=== PATIENT | male | born 1945 | race Caucasian/White ===

== ENCOUNTER 2020-07-16 20:35 | Inpatient (IN) | payer MEDICARE, OTHER ==
[~2020-07-16] VITALS: Ht 175.3 cm; Wt 59.4 kg
[~2020-07-16 20:35] MED LIST: AMLO5TAB4 PO; ASPI-1406 PO; LORA2TAB95 PO; MULT-1146 PO; THIA100T13 PO
[2020-07-16] MEDS ORDERED: AZITHROMYCIN 500 MG in DEXT 5% WATER 250 ML IV ONE (21:30)
[2020-07-16] MEDS ORDERED: CEFTRIAXONE 1 G PREMIX 50 ML IV ONE (21:30)
[2020-07-16 22:49] LABS: BG BASE EXCESS -0.7 mmol/L (-2.0-2.0); BG CARBOXYHEMOGLOBIN 1.2 % (0.5-1.5); BG DEOXYHEMOGLOBIN 9.4 % (0.0-5.0); BG FRACTION INSPIRED OXYGEN 70; BG HCO3 ACT 23.4 mmol/L (22.0-26.0); BG METHEMOGLOBIN 0.1 % (0.0-1.5); BG OXYGEN SATURATION 90.5 % (92.0-98.5); BG OXYHEMOGLOBIN 89.3 % (94.0-97.0); BG PCO2 37.2 mmHg (35.0-45.0); BG PH 7.417 (7.350-7.450); BG PO2 59.3 mmHg (75.0-100.0); BG SAMPLE SITE RIGHT RADIAL; BG TOTAL HEMOGLOBIN 14.4 g/dL (12.0-18.0); BG VENT MODE MASK - BIPAP
[2020-07-16 23:02] LABS: BASOPHILS % 0.9 % (0.0-2.0); EOSINOPHILS % 0.2 % (0.0-5.0); HEMATOCRIT. 39.6 % (42.0-52.0); HEMOGLOBIN. 13.6 g/dL (14.0-18.0); LYMPHOCYTES % 18.3 % (20.0-50.0); MEAN CORPUSCULAR HEMOGLOBIN 31.1 pg (28.0-32.0); MEAN CORPUSCULAR VOLUME 90.9 fL (80.0-94.0); MONOCYTES % 9.1 % (2.0-8.0); NEUTROPHILS % 71.5 % (40.0-76.0); PLATELET 326 x1000/uL (130-400); RED BLOOD CELL COUNT 4.36 mill/uL (4.7-6.1); RED CELL DISTRIBUTION WIDTH 14.7 % (11.6-14.6)
[2020-07-16 23:09] LABS: CHLORIDE 107 mEq/L (98-107)
[2020-07-16 23:11] LABS: INR 1.2; PROTHROMBIN TIME 12.4 sec (9.6-11.0)
[2020-07-17] MEDS ORDERED: DEXAMETHASONE 10 MG/ML VIAL IV ONE (01:15)
[2020-07-17] MEDS ORDERED: KEPP500 MT (08:45)
[2020-07-17] MEDS ORDERED: ALPR1TAB2 MT (08:45)
[2020-07-17] MEDS: AMLODIPINE 10MG TABLET PO SCH (09:00)
[2020-07-17] MEDS ORDERED: ALBUTEROL 6.7GM HFA INHALER ORI PRN (09:00)
[2020-07-17] MEDS ORDERED: ONDANSETRON HCL 4MG/2ML INJ IV PRN (09:00)
[2020-07-17] MEDS: ENOXAPARIN 40MG/0.4ML SYR SUBCUT SCH (15:00)
[2020-07-17] MEDS ORDERED: ALPRAZOLAM 0.25 MG TABLET PO PRN (16:45)
[2020-07-17] MEDS: ALPRAZOLAM 0.25 MG TABLET PO SCH (17:00)
[2020-07-17 17:04] LABS: CLARITY URINE CLEAR (CLEAR); COLOR URINE DARK YELLOW (YELLOW); KETONES URINE TRACE (NEGATIVE); LEUKOCYTE ESTERASE URINE NEGATIVE (NEGATIVE); NITRITE URINE NEGATIVE (NEGATIVE); OCCULT BLOOD URINE TRACE (NEGATIVE); PH URINE 5.5 (4.5-8.0); PROTEIN URINE 2+ (NEGATIVE); SPECIFIC GRAVITY URINE 1.026 (1.005-1.030)
[2020-07-17] MEDS ORDERED: HYDRALAZINE HCL 100MG TABLET PO SCH (18:30)
[2020-07-17] MEDS: DEXAMETHASONE 10 MG/ML VIAL IV SCH (19:04)
[2020-07-17] MEDS: LEVETIRACETAM 500MG TABLET PO SCH ×2 (21:00→22:30)
[2020-07-18] MEDS: CEFTRIAXONE 1,000 MG in DEXTROSE 5% WATER 50 ML IV SCH (02:02)
[2020-07-18 08:38] LABS: BG BASE EXCESS -2.6 mmol/L (-2.0-2.0); BG CARBOXYHEMOGLOBIN 0.4 % (0.5-1.5); BG DEOXYHEMOGLOBIN 5.1 % (0.0-5.0); BG FRACTION INSPIRED OXYGEN 100; BG HCO3 ACT 20.9 mmol/L (22.0-26.0); BG METHEMOGLOBIN 0.2 % (0.0-1.5); BG OXYGEN SATURATION 94.9 % (92.0-98.5); BG OXYHEMOGLOBIN 94.3 % (94.0-97.0); BG PCO2 32.7 mmHg (35.0-45.0); BG PH 7.424 (7.350-7.450); BG PO2 73.6 mmHg (75.0-100.0); BG SAMPLE SITE RIGHT BRACHIAL; BG TOTAL RESPIRATORY RATE 16 b/min; BG VENT MODE MASK - BIPAP
[2020-07-18 09:14] LABS: BASOPHILS % 0.4 % (0.0-2.0); HEMOGLOBIN. 14.5 g/dL (14.0-18.0); LYMPHOCYTES % 7.8 % (20.0-50.0); MEAN CORPUSCULAR HEMOGLOBIN 30.9 pg (28.0-32.0); MEAN CORPUSCULAR VOLUME 91.7 fL (80.0-94.0); MEAN PLATELET VOLUME 8.1 fl (7.4-10.4); MONOCYTES % 5.8 % (2.0-8.0); PLATELET 418 x1000/uL (130-400); RED BLOOD CELL COUNT 4.68 mill/uL (4.7-6.1); RED CELL DISTRIBUTION WIDTH 14.4 % (11.6-14.6)
[2020-07-18 09:21] LABS: CHLORIDE 113 mEq/L (98-107)
[2020-07-18] MEDS: DEXAMETHASONE 10 MG/ML VIAL IV SCH (09:40)
[2020-07-18] MEDS: HYDRALAZINE HCL 100MG TABLET PO SCH ×2 (09:40→16:43)
[2020-07-18] MEDS: LEVETIRACETAM 500MG TABLET PO SCH ×2 (09:41→21:00)
[2020-07-18] MEDS: AMLODIPINE 10MG TABLET PO SCH (09:41)
[2020-07-18] MEDS: ALPRAZOLAM 0.25 MG TABLET PO SCH ×2 (09:41→16:43)
[2020-07-18] MEDS: AZITHROMYCIN 250 MG TABLET PO SCH (09:42)
[2020-07-18] MEDS: ENOXAPARIN 40MG/0.4ML SYR SUBCUT SCH (09:42)
[2020-07-18] MEDS: SODIUM CHLORIDE 0.45% 1,000 ML IV SCH (10:24)
[2020-07-19] VITALS (7 sets, daily range): BP systolic 106–145; BP diastolic 60–82
[2020-07-19] MEDS: HYDRALAZINE HCL 100MG TABLET PO SCH ×3 (01:00→17:00)
[2020-07-19] MEDS: SODIUM CHLORIDE 0.45% 1,000 ML IV SCH ×2 (02:19→21:38)
[2020-07-19] MEDS: CEFTRIAXONE 1,000 MG in DEXTROSE 5% WATER 50 ML IV SCH (02:19)
[2020-07-19 06:45] LABS: BG BASE EXCESS -3.4 mmol/L (-2.0-2.0); BG CARBOXYHEMOGLOBIN 0.3 % (0.5-1.5); BG DEOXYHEMOGLOBIN 0.4 % (0.0-5.0); BG FRACTION INSPIRED OXYGEN 100; BG HCO3 ACT 19.5 mmol/L (22.0-26.0); BG METHEMOGLOBIN 0.3 % (0.0-1.5); BG OXYGEN SATURATION 99.6 % (92.0-98.5); BG PCO2 29.4 mmHg (35.0-45.0); BG PH 7.439 (7.350-7.450); BG PO2 227.7 mmHg (75.0-100.0); BG SAMPLE SITE RIGHT RADIAL; BG TOTAL HEMOGLOBIN 14.1 g/dL (12.0-18.0); BG TOTAL RESPIRATORY RATE 40 b/min; BG VENT MODE MASK - BIPAP
[2020-07-19] MEDS: AZITHROMYCIN 250 MG TABLET PO SCH (10:02)
[2020-07-19] MEDS: AMLODIPINE 10MG TABLET PO SCH (10:02)
[2020-07-19] MEDS: ALPRAZOLAM 0.25 MG TABLET PO SCH ×2 (10:02→17:45)
[2020-07-19] MEDS: LEVETIRACETAM 500MG TABLET PO SCH ×2 (10:02→20:56)
[2020-07-19] MEDS: DEXAMETHASONE 10 MG/ML VIAL IV SCH (10:03)
[2020-07-19] MEDS: ENOXAPARIN 40MG/0.4ML SYR SUBCUT SCH (11:16)
[2020-07-19] MEDS: BLOOD SUGAR DIAGNOSTIC STRIP TEST SCH ×2 (17:15→21:00)
[2020-07-19 17:34] LABS: HEMATOCRIT. 40.1 % (42.0-52.0); HEMOGLOBIN. 13.1 g/dL (14.0-18.0); MEAN CORPUSCULAR HEMOGLOBIN 29.9 pg (28.0-32.0); MEAN CORPUSCULAR VOLUME 91.8 fL (80.0-94.0); MEAN PLATELET VOLUME 8.3 fl (7.4-10.4); PLATELET 426 x1000/uL (130-400); RED BLOOD CELL COUNT 4.37 mill/uL (4.7-6.1); RED CELL DISTRIBUTION WIDTH 14.9 % (11.6-14.6)
[2020-07-19] MEDS: INSULIN LISPRO 100 UNITS/ML SUBCUT SCH ×2 (17:47→21:00)
[2020-07-19 17:49] LABS: CHLORIDE 117 mEq/L (98-107)
[2020-07-19 19:06] LABS: PLATELET ESTIMATE INCREASED
[2020-07-19] MEDS ORDERED: INSULIN GLARGINE UD 100 UNITS/ML SYR SUBCUT SCH (22:00)
[2020-07-20 00:05] VITALS: BP 133/71
[2020-07-20] MEDS: HYDRALAZINE HCL 100MG TABLET PO SCH ×3 (02:00→17:00)
[2020-07-20] MEDS: CEFTRIAXONE 1,000 MG in DEXTROSE 5% WATER 50 ML IV SCH (02:00)
[2020-07-20 04:00] VITALS: BP 119/56
[2020-07-20] MEDS: BLOOD SUGAR DIAGNOSTIC STRIP TEST SCH ×4 (05:47→20:27)
[2020-07-20] MEDS: INSULIN LISPRO 100 UNITS/ML SUBCUT SCH ×4 (05:47→21:07)
[2020-07-20 07:25] LABS: BASOPHILS % 0.2 % (0.0-2.0); HEMATOCRIT. 43.7 % (42.0-52.0); HEMOGLOBIN. 14.2 g/dL (14.0-18.0); LYMPHOCYTES % 7.5 % (20.0-50.0); MEAN CORPUSCULAR HEMOGLOBIN 30.2 pg (28.0-32.0); MEAN CORPUSCULAR VOLUME 92.7 fL (80.0-94.0); MEAN PLATELET VOLUME 8.3 fl (7.4-10.4); MONOCYTES % 6.5 % (2.0-8.0); NEUTROPHILS % 85.8 % (40.0-76.0); PLATELET 439 x1000/uL (130-400); RED BLOOD CELL COUNT 4.71 mill/uL (4.7-6.1); RED CELL DISTRIBUTION WIDTH 14.7 % (11.6-14.6)
[2020-07-20 07:34] LABS: CHLORIDE 118 mEq/L (98-107)
[2020-07-20 08:00] VITALS: BP 145/82
[2020-07-20] MEDS: AMLODIPINE 10MG TABLET PO SCH (09:00)
[2020-07-20] MEDS: LEVETIRACETAM 500MG TABLET PO SCH ×2 (09:00→20:11)
[2020-07-20] MEDS: ALPRAZOLAM 0.25 MG TABLET PO SCH ×2 (09:00→17:00)
[2020-07-20] MEDS: AZITHROMYCIN 250 MG TABLET PO SCH (09:00)
[2020-07-20] MEDS: DEXAMETHASONE 10 MG/ML VIAL IV SCH (09:24)
[2020-07-20] MEDS: ENOXAPARIN 40MG/0.4ML SYR SUBCUT SCH (09:28)
[2020-07-20 12:00] VITALS: BP 155/90
[2020-07-20 16:00] VITALS: BP 140/80
[2020-07-20 20:00] VITALS: BP 154/76
[2020-07-20] MEDS: SODIUM CHLORIDE 0.45% 1,000 ML IV SCH (21:07)
[2020-07-20] MEDS: LEVETIRACETAM 500MG PREMIX 100 ML IV SCH (22:22)
[2020-07-21 00:43] VITALS: BP 144/80
[2020-07-21] MEDS: HYDRALAZINE HCL 100MG TABLET PO SCH ×3 (01:00→17:00)
[2020-07-21] MEDS: BLOOD SUGAR DIAGNOSTIC STRIP TEST SCH ×4 (05:48→21:55)
[2020-07-21] MEDS: INSULIN LISPRO 100 UNITS/ML SUBCUT SCH ×4 (05:49→21:58)
[2020-07-21 07:43] LABS: HEMATOCRIT. 42.3 % (42.0-52.0); HEMOGLOBIN. 13.9 g/dL (14.0-18.0); MEAN CORPUSCULAR HEMOGLOBIN 30.4 pg (28.0-32.0); MEAN CORPUSCULAR VOLUME 92.5 fL (80.0-94.0); MEAN PLATELET VOLUME 8.4 fl (7.4-10.4); PLATELET 428 x1000/uL (130-400); RED BLOOD CELL COUNT 4.57 mill/uL (4.7-6.1); RED CELL DISTRIBUTION WIDTH 14.6 % (11.6-14.6)
[2020-07-21 08:00] VITALS: BP 116/70
[2020-07-21 08:53] LABS: CHLORIDE 116 mEq/L (98-107)
[2020-07-21] MEDS: AZITHROMYCIN 250 MG TABLET PO SCH (09:00)
[2020-07-21] MEDS: AMLODIPINE 10MG TABLET PO SCH (09:00)
[2020-07-21] MEDS: ALPRAZOLAM 0.25 MG TABLET PO SCH ×2 (09:00→17:00)
[2020-07-21] MEDS: CEFTRIAXONE 1,000 MG in DEXTROSE 5% WATER 50 ML IV SCH (09:59)
[2020-07-21] MEDS: LEVETIRACETAM 500MG PREMIX 100 ML IV SCH ×2 (10:00→20:38)
[2020-07-21 11:47] LABS: BG BASE EXCESS 0.5 mmol/L (-2.0-2.0); BG CARBOXYHEMOGLOBIN 0.6 % (0.5-1.5); BG DEOXYHEMOGLOBIN 3.4 % (0.0-5.0); BG FRACTION INSPIRED OXYGEN 60; BG HCO3 ACT 24.7 mmol/L (22.0-26.0); BG METHEMOGLOBIN 0.2 % (0.0-1.5); BG OXYGEN SATURATION 96.6 % (92.0-98.5); BG OXYHEMOGLOBIN 95.8 % (94.0-97.0); BG PCO2 38.3 mmHg (35.0-45.0); BG PH 7.427 (7.350-7.450); BG PO2 84.3 mmHg (75.0-100.0); BG SAMPLE SITE RIGHT BRACHIAL; BG TOTAL HEMOGLOBIN 14.5 g/dL (12.0-18.0); BG TOTAL RESPIRATORY RATE 22 b/min; BG VENT MODE MASK - BIPAP
[2020-07-21 12:00] VITALS: BP 127/93
[2020-07-21] MEDS: DEXAMETHASONE 10 MG/ML VIAL IV SCH (12:04)
[2020-07-21] MEDS: ENOXAPARIN 40MG/0.4ML SYR SUBCUT SCH (12:04)
[2020-07-21] MEDS ORDERED: ACETAMINOPHEN 650MG SUPP PR PRN (15:30)
[2020-07-21 16:00] VITALS: BP 126/96
[2020-07-21] MEDS: SODIUM CHLORIDE 0.45% 1,000 ML IV SCH (17:35)
[2020-07-21 20:00] VITALS: BP 132/81
[2020-07-22] VITALS (73 sets, daily range): BP systolic 68–159; BP diastolic 47–87
[2020-07-22] MEDS ORDERED: NON FORMULARY PATIENT HOME MED XX SCH (00:45)
[2020-07-22] MEDS: HYDRALAZINE 20MG/ML VIAL IV SCH ×2 (03:11→14:00)
[2020-07-22] MEDS: BLOOD SUGAR DIAGNOSTIC STRIP TEST SCH ×4 (06:40→21:05)
[2020-07-22 06:55] LABS: HEMATOCRIT. 42.4 % (42.0-52.0); HEMOGLOBIN. 13.8 g/dL (14.0-18.0); MEAN CORPUSCULAR HEMOGLOBIN 30.4 pg (28.0-32.0); MEAN PLATELET VOLUME 8.8 fl (7.4-10.4); PLATELET 372 x1000/uL (130-400); RED BLOOD CELL COUNT 4.55 mill/uL (4.7-6.1); RED CELL DISTRIBUTION WIDTH 15.1 % (11.6-14.6)
[2020-07-22 07:07] LABS: CHLORIDE 116 mEq/L (98-107)
[2020-07-22] MEDS: INSULIN LISPRO 100 UNITS/ML SUBCUT SCH ×4 (07:10→21:00)
[2020-07-22] MEDS: DEXAMETHASONE 10 MG/ML VIAL IV SCH (09:00)
[2020-07-22] MEDS: ENOXAPARIN 40MG/0.4ML SYR SUBCUT SCH (09:00)
[2020-07-22] MEDS: AMLODIPINE 10MG TABLET PO SCH (09:00)
[2020-07-22] MEDS: LEVETIRACETAM 500MG PREMIX 100 ML IV SCH ×2 (09:00→22:24)
[2020-07-22] MEDS: CEFTRIAXONE 1,000 MG in DEXTROSE 5% WATER 50 ML IV SCH (09:00)
[2020-07-22] MEDS: ALPRAZOLAM 0.25 MG TABLET PO SCH (09:00)
[2020-07-22] MEDS ORDERED: LIDOCAINE HCL 1% 20ML VIAL (Pyxis) INJ ONE (09:58)
[2020-07-22] MEDS: MIDAZOLAM HCL 100 MG in DEXT 5% WATER 80 ML IV PRN (10:25)
[2020-07-22] MEDS: FENTANYL CITRATE/PF 2,500 MCG in SODIUM CHLORIDE 0.9% 200 ML IV PRN ×2 (10:26→23:31)
[2020-07-22 10:36] LABS: BG BASE EXCESS -2.4 mmol/L (-2.0-2.0); BG CARBOXYHEMOGLOBIN 0.5 % (0.5-1.5); BG DEOXYHEMOGLOBIN 19.1 % (0.0-5.0); BG FRACTION INSPIRED OXYGEN 100; BG HCO3 ACT 24.4 mmol/L (22.0-26.0); BG METHEMOGLOBIN 0.3 % (0.0-1.5); BG OXYGEN SATURATION 80.7 % (92.0-98.5); BG OXYHEMOGLOBIN 80.1 % (94.0-97.0); BG PCO2 49.5 mmHg (35.0-45.0); BG PH 7.311 (7.350-7.450); BG PO2 47.7 mmHg (75.0-100.0); BG SAMPLE SITE RIGHT RADIAL; BG TOTAL HEMOGLOBIN 15.9 g/dL (12.0-18.0); BG TOTAL RESPIRATORY RATE 18 b/min; BG VENT MODE VENT-PRVC
[2020-07-22] MEDS ORDERED: NOREPINEPHRINE 8 MG in DEXT 5% WATER 242 ML IV PRN (13:00)
[2020-07-22 14:16] LABS: BG BASE EXCESS -3.5 mmol/L (-2.0-2.0); BG CARBOXYHEMOGLOBIN 0.5 % (0.5-1.5); BG DEOXYHEMOGLOBIN 0.9 % (0.0-5.0); BG FRACTION INSPIRED OXYGEN 100; BG HCO3 ACT 21.6 mmol/L (22.0-26.0); BG METHEMOGLOBIN 0.3 % (0.0-1.5); BG OXYGEN SATURATION 99.1 % (92.0-98.5); BG OXYHEMOGLOBIN 98.3 % (94.0-97.0); BG PCO2 39.3 mmHg (35.0-45.0); BG PH 7.358 (7.350-7.450); BG PO2 185.5 mmHg (75.0-100.0); BG SAMPLE SITE LEFT RADIAL; BG TOTAL HEMOGLOBIN 14.4 g/dL (12.0-18.0); BG TOTAL RESPIRATORY RATE 22 b/min; BG VENT MODE VENT- PRVC
[2020-07-22 14:40] LABS: PLATELET ESTIMATE INCREASED
[2020-07-22] MEDS: SODIUM CHLORIDE 0.45% 1,000 ML IV SCH (14:46)
[2020-07-22] MEDS: ERGOCALCIFEROL 50000UNITS CAPSULE PO SCH (16:33)
[2020-07-22] MEDS: MIDODRINE HCL 5MG TABLET PO SCH ×2 (16:33→21:05)
[2020-07-22 17:49] LABS: PLATELET ESTIMATE NORMAL
[2020-07-22] MEDS: ASCORBIC ACID 500 MG TABLET PO SCH (21:05)
[2020-07-23] VITALS (107 sets, daily range): BP systolic 74–173; BP diastolic 42–101
[2020-07-23] MEDS: SODIUM CHLORIDE 0.45% 1,000 ML IV SCH ×2 (01:00→23:47)
[2020-07-23] MEDS: INSULIN LISPRO 100 UNITS/ML SUBCUT SCH ×4 (06:09→21:07)
[2020-07-23] MEDS: BLOOD SUGAR DIAGNOSTIC STRIP TEST SCH ×4 (06:09→21:08)
[2020-07-23] MEDS: DEXTROSE 50% WATER 50ML SYRINGE IV PRN (06:15)
[2020-07-23 06:49] LABS: HEMATOCRIT. 41.3 % (42.0-52.0); HEMOGLOBIN. 13.3 g/dL (14.0-18.0); MEAN CORPUSCULAR HEMOGLOBIN 30.1 pg (28.0-32.0); MEAN CORPUSCULAR VOLUME 93.6 fL (80.0-94.0); MEAN PLATELET VOLUME 8.9 fl (7.4-10.4); PLATELET 308 x1000/uL (130-400); RED BLOOD CELL COUNT 4.42 mill/uL (4.7-6.1); RED CELL DISTRIBUTION WIDTH 15.3 % (11.6-14.6)
[2020-07-23 07:00] LABS: CHLORIDE 116 mEq/L (98-107)
[2020-07-23] MEDS: DEXAMETHASONE 10 MG/ML VIAL IV SCH (08:07)
[2020-07-23] MEDS: ENOXAPARIN 40MG/0.4ML SYR SUBCUT SCH (08:07)
[2020-07-23] MEDS: ASCORBIC ACID 500 MG TABLET PO SCH ×2 (08:07→20:53)
[2020-07-23] MEDS: MIDODRINE HCL 5MG TABLET PO SCH ×3 (08:07→18:00)
[2020-07-23] MEDS: LEVETIRACETAM 500MG PREMIX 100 ML IV SCH ×2 (08:07→20:53)
[2020-07-23] MEDS: ACETAMINOPHEN 325MG TABLET PO PRN (08:13)
[2020-07-23 10:44] LABS: BG BASE EXCESS -2.7 mmol/L (-2.0-2.0); BG CARBOXYHEMOGLOBIN 0.1 % (0.5-1.5); BG DEOXYHEMOGLOBIN 4.1 % (0.0-5.0); BG HCO3 ACT 20.6 mmol/L (22.0-26.0); BG METHEMOGLOBIN 0.3 % (0.0-1.5); BG OXYGEN SATURATION 95.9 % (92.0-98.5); BG OXYHEMOGLOBIN 95.5 % (94.0-97.0); BG PCO2 31.7 mmHg (35.0-45.0); BG PH 7.431 (7.350-7.450); BG PO2 74.9 mmHg (75.0-100.0); BG SAMPLE SITE RIGHT RADIAL; BG VENT MODE VENT- PRVC
[2020-07-23] MEDS: CEFTRIAXONE 1,000 MG in DEXTROSE 5% WATER 50 ML IV SCH (12:03)
[2020-07-23 13:28] LABS: PLATELET ESTIMATE NORMAL
[2020-07-23] MEDS ORDERED: DOPAMINE 400MG/250ML PREMIX 250 ML IV PRN (15:00)
[2020-07-23] MEDS: MIDAZOLAM HCL 100 MG in DEXT 5% WATER 80 ML IV PRN (18:01)
[2020-07-23] MEDS: FENTANYL CITRATE/PF 2,500 MCG in SODIUM CHLORIDE 0.9% 200 ML IV PRN (18:02)
[2020-07-24] VITALS (101 sets, daily range): BP systolic 81–186; BP diastolic 25–105
[2020-07-24 05:47] LABS: HEMATOCRIT. 38.6 % (42.0-52.0); HEMOGLOBIN. 12.4 g/dL (14.0-18.0); MEAN CORPUSCULAR HEMOGLOBIN 29.9 pg (28.0-32.0); MEAN CORPUSCULAR VOLUME 93.4 fL (80.0-94.0); PLATELET 266 x1000/uL (130-400); RED BLOOD CELL COUNT 4.13 mill/uL (4.7-6.1); RED CELL DISTRIBUTION WIDTH 15.3 % (11.6-14.6)
[2020-07-24 06:06] LABS: CHLORIDE 114 mEq/L (98-107)
[2020-07-24] MEDS: INSULIN LISPRO 100 UNITS/ML SUBCUT SCH ×4 (06:31→20:44)
[2020-07-24] MEDS: BLOOD SUGAR DIAGNOSTIC STRIP TEST SCH ×4 (06:32→20:43)
[2020-07-24] MEDS: LEVETIRACETAM 500MG PREMIX 100 ML IV SCH (08:41)
[2020-07-24] MEDS: DEXAMETHASONE 10 MG/ML VIAL IV SCH (08:42)
[2020-07-24] MEDS: ENOXAPARIN 40MG/0.4ML SYR SUBCUT SCH (08:42)
[2020-07-24] MEDS: MIDODRINE HCL 5MG TABLET PO SCH ×3 (08:42→16:43)
[2020-07-24] MEDS: ASCORBIC ACID 500 MG TABLET PO SCH ×2 (08:42→20:43)
[2020-07-24] MEDS: FENTANYL CITRATE/PF 2,500 MCG in SODIUM CHLORIDE 0.9% 200 ML IV PRN (10:02)
[2020-07-24 10:14] LABS: BG CARBOXYHEMOGLOBIN 0.3 % (0.5-1.5); BG FRACTION INSPIRED OXYGEN 85; BG HCO3 ACT 21.3 mmol/L (22.0-26.0); BG METHEMOGLOBIN 0.1 % (0.0-1.5); BG OXYHEMOGLOBIN 98.6 % (94.0-97.0); BG PCO2 31.9 mmHg (35.0-45.0); BG PH 7.443 (7.350-7.450); BG PO2 174.2 mmHg (75.0-100.0); BG SAMPLE SITE RIGHT RADIAL; BG TOTAL HEMOGLOBIN 12.3 g/dL (12.0-18.0); BG VENT MODE PRVC
[2020-07-24 12:44] LABS: PLATELET ESTIMATE NORMAL
[2020-07-24] MEDS: DOPAMINE 400MG/250ML PREMIX 250 ML IV PRN (14:30)
[2020-07-24] MEDS ORDERED: LACTULOSE 20G/30ML UDC PO SCH (15:45)
[2020-07-24] MEDS: IPRATROPIUM/ALBUTEROL 0.5-3(2.5)MG/3ML NEB HHN SCH ×2 (16:27→20:34)
[2020-07-24] MEDS: SODIUM CHLORIDE 0.45% 1,000 ML IV SCH (20:41)
[2020-07-24] MEDS ORDERED: LEVETIRACETAM 1000MG PREMIX 100 ML IV SCH (21:00)
[2020-07-24] MEDS: LEVETIRACETAM 1,000 MG in SODIUM CHLORIDE 0.9% 100 ML IV SCH (21:08)
[2020-07-24 23:34] LABS: ETHANOL BLOOD < 10 mg/dL
[2020-07-24 23:39] LABS: T4 FREE 0.88 ng/dL (0.76-1.46)
[2020-07-25] VITALS (97 sets, daily range): BP systolic 72–201; BP diastolic 37–107
[2020-07-25 00:05] LABS: FOLIC ACID (FOLATE) SERUM 9.9 ng/mL (>5.38)
[2020-07-25] MEDS: IPRATROPIUM/ALBUTEROL 0.5-3(2.5)MG/3ML NEB HHN SCH ×6 (00:20→20:54)
[2020-07-25] MEDS: FENTANYL CITRATE/PF 2,500 MCG in SODIUM CHLORIDE 0.9% 200 ML IV PRN ×2 (00:57→16:10)
[2020-07-25] MEDS: DOPAMINE 400MG/250ML PREMIX 250 ML IV PRN ×2 (02:19→19:26)
[2020-07-25 03:23] LABS: *AMPHETAMINES SCREEN URINE NEGATIVE (NEGATIVE); *BARBITURATES SCREEN URINE NEGATIVE (NEGATIVE)
[2020-07-25 03:24] LABS: *BENZODIAZEPINES SCREEN URINE PRESUMTIVE POSITIVE (NEGATIVE); *COCAINE SCREEN URINE NEGATIVE (NEGATIVE); METHADONE URINE SCREEN NEGATIVE (NEGATIVE); OPIATES URINE SCREEN NEGATIVE (NEGATIVE)
[2020-07-25 03:25] LABS: CANNABINOID URINE SCREEN NEGATIVE (NEGATIVE); PHENCYCLIDINE URINE SCREEN NEGATIVE (NEGATIVE)
[2020-07-25] MEDS: BLOOD SUGAR DIAGNOSTIC STRIP TEST SCH ×4 (05:57→20:16)
[2020-07-25] MEDS: INSULIN LISPRO 100 UNITS/ML SUBCUT SCH ×4 (06:00→20:34)
[2020-07-25 06:03] LABS: HEMATOCRIT. 39.5 % (42.0-52.0); MEAN CORPUSCULAR HEMOGLOBIN 30.2 pg (28.0-32.0); MEAN CORPUSCULAR VOLUME 91.8 fL (80.0-94.0); MEAN PLATELET VOLUME 9.3 fl (7.4-10.4); PLATELET 283 x1000/uL (130-400)
[2020-07-25 06:06] LABS: CHLORIDE 105 mEq/L (98-107)
[2020-07-25] MEDS: LEVETIRACETAM 1,000 MG in SODIUM CHLORIDE 0.9% 100 ML IV SCH ×2 (09:46→22:01)
[2020-07-25] MEDS: FOLIC ACID 1MG TABLET PO SCH (09:47)
[2020-07-25] MEDS: ENOXAPARIN 40MG/0.4ML SYR SUBCUT SCH (09:47)
[2020-07-25] MEDS: MULTIVITAMINS,THER W-MINERALS TABLET PO SCH (09:47)
[2020-07-25] MEDS: THIAMINE HCL 100MG TABLET PO SCH (09:47)
[2020-07-25] MEDS: ASCORBIC ACID 500 MG TABLET PO SCH ×2 (09:47→20:32)
[2020-07-25] MEDS: DEXAMETHASONE 10 MG/ML VIAL IV SCH (09:47)
[2020-07-25] MEDS: MIDODRINE HCL 5MG TABLET PO SCH ×3 (09:48→16:49)
[2020-07-25 11:33] LABS: BG BASE EXCESS -0.1 mmol/L (-2.0-2.0); BG CARBOXYHEMOGLOBIN 0.3 % (0.5-1.5); BG DEOXYHEMOGLOBIN 4.2 % (0.0-5.0); BG FRACTION INSPIRED OXYGEN 70; BG HCO3 ACT 22.7 mmol/L (22.0-26.0); BG METHEMOGLOBIN 0.3 % (0.0-1.5); BG OXYGEN SATURATION 95.8 % (92.0-98.5); BG OXYHEMOGLOBIN 95.2 % (94.0-97.0); BG PCO2 31.7 mmHg (35.0-45.0); BG PH 7.473 (7.350-7.450); BG PO2 72.8 mmHg (75.0-100.0); BG SAMPLE SITE RIGHT RADIAL; BG TOTAL HEMOGLOBIN 13.8 g/dL (12.0-18.0); BG VENT MODE PRVC
[2020-07-25] MEDS ORDERED: MIDAZOLAM HCL 100 MG in SODIUM CHLORIDE 0.9% 80 ML IV PRN (11:45)
[2020-07-25 14:11] LABS: PLATELET ESTIMATE NORMAL
[2020-07-25] MEDS: SODIUM CHLORIDE 0.45% 1,000 ML IV SCH (22:01)
[2020-07-26] VITALS (96 sets, daily range): BP systolic 80–179; BP diastolic 51–100
[2020-07-26] MEDS: IPRATROPIUM/ALBUTEROL 0.5-3(2.5)MG/3ML NEB HHN SCH ×7 (00:10→20:32)
[2020-07-26] MEDS: BLOOD SUGAR DIAGNOSTIC STRIP TEST SCH ×4 (05:36→23:17)
[2020-07-26] MEDS: INSULIN LISPRO 100 UNITS/ML SUBCUT SCH ×4 (05:40→23:24)
[2020-07-26 05:53] LABS: CHLORIDE 106 mEq/L (98-107)
[2020-07-26 05:59] LABS: HEMATOCRIT. 38.7 % (42.0-52.0); HEMOGLOBIN. 12.8 g/dL (14.0-18.0); MEAN CORPUSCULAR HEMOGLOBIN 30.7 pg (28.0-32.0); MEAN CORPUSCULAR VOLUME 92.8 fL (80.0-94.0); MEAN PLATELET VOLUME 9.2 fl (7.4-10.4); PLATELET 234 x1000/uL (130-400); RED BLOOD CELL COUNT 4.16 mill/uL (4.7-6.1); RED CELL DISTRIBUTION WIDTH 14.9 % (11.6-14.6)
[2020-07-26] MEDS: FENTANYL CITRATE/PF 2,500 MCG in SODIUM CHLORIDE 0.9% 200 ML IV PRN ×2 (06:04→19:57)
[2020-07-26] MEDS: MULTIVITAMINS,THER W-MINERALS TABLET PO SCH (09:14)
[2020-07-26] MEDS: FOLIC ACID 1MG TABLET PO SCH (09:14)
[2020-07-26] MEDS: ASCORBIC ACID 500 MG TABLET PO SCH ×2 (09:14→21:01)
[2020-07-26] MEDS: DEXAMETHASONE 10 MG/ML VIAL IV SCH (09:15)
[2020-07-26] MEDS: LEVETIRACETAM 1,000 MG in SODIUM CHLORIDE 0.9% 100 ML IV SCH ×2 (09:15→21:02)
[2020-07-26] MEDS: THIAMINE HCL 100MG TABLET PO SCH (09:15)
[2020-07-26] MEDS: ENOXAPARIN 40MG/0.4ML SYR SUBCUT SCH (09:16)
[2020-07-26] MEDS: MIDODRINE HCL 5MG TABLET PO SCH ×3 (09:38→17:23)
[2020-07-26 09:42] LABS: BG BASE EXCESS -0.7 mmol/L (-2.0-2.0); BG CARBOXYHEMOGLOBIN 0.3 % (0.5-1.5); BG FRACTION INSPIRED OXYGEN 70; BG HCO3 ACT 22.1 mmol/L (22.0-26.0); BG METHEMOGLOBIN 0.3 % (0.0-1.5); BG OXYHEMOGLOBIN 98.4 % (94.0-97.0); BG PCO2 30.8 mmHg (35.0-45.0); BG PH 7.473 (7.350-7.450); BG PO2 144.3 mmHg (75.0-100.0); BG SAMPLE SITE RIGHT RADIAL; BG TOTAL HEMOGLOBIN 12.7 g/dL (12.0-18.0); BG TOTAL RESPIRATORY RATE 24 b/min; BG VENT MODE VENT - AC/PRVC
[2020-07-26] MEDS: DOPAMINE 400MG/250ML PREMIX 250 ML IV PRN (12:51)
[2020-07-26 13:39] LABS: PLATELET ESTIMATE NORMAL
[2020-07-26] MEDS: SODIUM CHLORIDE 0.45% 1,000 ML IV SCH (17:22)
[2020-07-27] VITALS (99 sets, daily range): BP systolic 54–217; BP diastolic 25–114
[2020-07-27] MEDS: IPRATROPIUM/ALBUTEROL 0.5-3(2.5)MG/3ML NEB HHN SCH ×4 (00:35→20:59)
[2020-07-27] MEDS: INSULIN LISPRO 100 UNITS/ML SUBCUT SCH ×4 (05:00→22:37)
[2020-07-27] MEDS: BLOOD SUGAR DIAGNOSTIC STRIP TEST SCH ×4 (05:29→22:37)
[2020-07-27] MEDS ORDERED: [UNRECOGNIZED DRUG - OTHER] IV (05:48)
[2020-07-27 06:06] LABS: CHLORIDE 104 mEq/L (98-107)
[2020-07-27 06:09] LABS: HEMOGLOBIN. 13.7 g/dL (14.0-18.0); MEAN CORPUSCULAR HEMOGLOBIN 30.2 pg (28.0-32.0); MEAN CORPUSCULAR VOLUME 92.5 fL (80.0-94.0); MEAN PLATELET VOLUME 8.9 fl (7.4-10.4); PLATELET 243 x1000/uL (130-400); RED BLOOD CELL COUNT 4.54 mill/uL (4.7-6.1)
[2020-07-27] MEDS: DEXAMETHASONE 10 MG/ML VIAL IV SCH (09:00)
[2020-07-27] MEDS: IPRATROPIUM/ALBUTEROL 0.5-3(2.5)MG/3ML NEB HHN PRN ×2 (09:19→12:22)
[2020-07-27] MEDS: ENOXAPARIN 40MG/0.4ML SYR SUBCUT SCH (09:45)
[2020-07-27] MEDS: ASCORBIC ACID 500 MG TABLET PO SCH ×2 (09:46→21:23)
[2020-07-27] MEDS: MULTIVITAMINS,THER W-MINERALS TABLET PO SCH (09:46)
[2020-07-27] MEDS: FOLIC ACID 1MG TABLET PO SCH (09:46)
[2020-07-27] MEDS: MIDODRINE HCL 5MG TABLET PO SCH ×3 (09:46→17:52)
[2020-07-27] MEDS: LEVETIRACETAM 1,000 MG in SODIUM CHLORIDE 0.9% 100 ML IV SCH ×2 (09:49→21:13)
[2020-07-27] MEDS: THIAMINE HCL 100MG TABLET PO SCH (09:52)
[2020-07-27] MEDS: MIDAZOLAM HCL 100 MG in DEXT 5% WATER 80 ML IV PRN (10:29)
[2020-07-27 10:56] LABS: BG BASE EXCESS 0.3 mmol/L (-2.0-2.0); BG DEOXYHEMOGLOBIN 2.2 % (0.0-5.0); BG FRACTION INSPIRED OXYGEN 50; BG HCO3 ACT 23.3 mmol/L (22.0-26.0); BG METHEMOGLOBIN 0.3 % (0.0-1.5); BG OXYGEN SATURATION 97.8 % (92.0-98.5); BG OXYHEMOGLOBIN 96.5 % (94.0-97.0); BG PCO2 32.7 mmHg (35.0-45.0); BG PH 7.471 (7.350-7.450); BG PO2 95.8 mmHg (75.0-100.0); BG SAMPLE SITE RIGHT RADIAL; BG TOTAL HEMOGLOBIN 13.2 g/dL (12.0-18.0); BG VENT MODE VENT - AC/PRVC
[2020-07-27] MEDS: FENTANYL CITRATE/PF 2,500 MCG in SODIUM CHLORIDE 0.9% 200 ML IV PRN (11:07)
[2020-07-27] MEDS ORDERED: SODIUM CHLORIDE 0.9% 500 ML IV SCH (11:30)
[2020-07-27 13:19] LABS: ATYPICAL LYMPHOCYTES 1
[2020-07-27 13:20] LABS: PLATELET ESTIMATE NORMAL
[2020-07-27] MEDS: PHENYLEPHRINE 100 MG in DEXT 5% WATER 240 ML IV PRN (13:35)
[2020-07-27] MEDS: SODIUM CHLORIDE 0.45% 1,000 ML IV SCH (13:46)
[2020-07-27] MEDS: PIPERACILLIN/TAZOBACTAM 3.375 G in DEXT 5% WATER 100 ML IV SCH ×2 (13:54→20:07)
[2020-07-27] MEDS ORDERED: PIPERACILLIN/TAZOBACTAM 3.375 G in DEXT 5% WATER 100 ML IV SCH (14:00)
[2020-07-27] MEDS ORDERED: VANCOMYCIN 1500MG in DEXTROSE 5% WATER 250ML IV SCH (15:00)
[2020-07-27] MEDS: DOPAMINE 400MG/250ML PREMIX 250 ML IV PRN (17:54)
[2020-07-28] VITALS (91 sets, daily range): BP systolic 65–194; BP diastolic 42–124
[2020-07-28] MEDS: PIPERACILLIN/TAZOBACTAM 3.375 G in DEXT 5% WATER 100 ML IV SCH ×4 (00:58→18:00)
[2020-07-28] MEDS: IPRATROPIUM/ALBUTEROL 0.5-3(2.5)MG/3ML NEB HHN SCH ×6 (01:03→20:47)
[2020-07-28 04:37] LABS: BASOPHILS % 0.2 % (0.0-2.0); EOSINOPHILS % 0.2 % (0.0-5.0); HEMATOCRIT. 42.8 % (42.0-52.0); HEMOGLOBIN. 13.7 g/dL (14.0-18.0); MEAN CORPUSCULAR VOLUME 93.5 fL (80.0-94.0); MEAN PLATELET VOLUME 9.2 fl (7.4-10.4); MONOCYTES % 5.3 % (2.0-8.0); NEUTROPHILS % 86.3 % (40.0-76.0); PLATELET 243 x1000/uL (130-400); RED BLOOD CELL COUNT 4.57 mill/uL (4.7-6.1); RED CELL DISTRIBUTION WIDTH 15.5 % (11.6-14.6)
[2020-07-28 04:44] LABS: CHLORIDE 105 mEq/L (98-107)
[2020-07-28] MEDS: DEXTROSE 50% WATER 50ML SYRINGE IV PRN (04:48)
[2020-07-28] MEDS: INSULIN LISPRO 100 UNITS/ML SUBCUT SCH ×4 (05:00→22:14)
[2020-07-28] MEDS: BLOOD SUGAR DIAGNOSTIC STRIP TEST SCH ×4 (05:36→22:13)
[2020-07-28] MEDS: VANCOMYCIN 750 MG PREMIX 150 ML IV SCH ×2 (06:01→18:00)
[2020-07-28] MEDS: ACETAMINOPHEN 325MG TABLET PO PRN ×2 (06:02→21:22)
[2020-07-28] MEDS: LEVETIRACETAM 1,000 MG in SODIUM CHLORIDE 0.9% 100 ML IV SCH ×2 (09:51→22:15)
[2020-07-28] MEDS: ENOXAPARIN 40MG/0.4ML SYR SUBCUT SCH (09:52)
[2020-07-28] MEDS: MIDODRINE HCL 5MG TABLET PO SCH ×3 (09:53→17:00)
[2020-07-28] MEDS: ASCORBIC ACID 500 MG TABLET PO SCH ×2 (09:54→21:22)
[2020-07-28] MEDS: DEXAMETHASONE 10 MG/ML VIAL IV SCH (09:54)
[2020-07-28] MEDS: FOLIC ACID 1MG TABLET PO SCH (09:54)
[2020-07-28] MEDS: THIAMINE HCL 100MG TABLET PO SCH (09:54)
[2020-07-28] MEDS: MULTIVITAMINS,THER W-MINERALS TABLET PO SCH (09:54)
[2020-07-28 11:53] LABS: BG BASE EXCESS -0.4 mmol/L (-2.0-2.0); BG CARBOXYHEMOGLOBIN 0.3 % (0.5-1.5); BG DEOXYHEMOGLOBIN 2.9 % (0.0-5.0); BG HCO3 ACT 22.2 mmol/L (22.0-26.0); BG METHEMOGLOBIN 0.2 % (0.0-1.5); BG OXYGEN SATURATION 97.1 % (92.0-98.5); BG OXYHEMOGLOBIN 96.6 % (94.0-97.0); BG PCO2 30.8 mmHg (35.0-45.0); BG PH 7.476 (7.350-7.450); BG SAMPLE SITE RIGHT RADIAL; BG TOTAL HEMOGLOBIN 14.3 g/dL (12.0-18.0); BG VENT MODE VENT- PRVC
[2020-07-28] MEDS: FENTANYL CITRATE/PF 2,500 MCG in SODIUM CHLORIDE 0.9% 200 ML IV PRN (16:31)
[2020-07-28] MEDS: MIDAZOLAM HCL 100 MG in DEXT 5% WATER 80 ML IV PRN (16:32)
[2020-07-28] MEDS: SODIUM CHLORIDE 0.45% 1,000 ML IV SCH (16:33)
[2020-07-28] MEDS: LEVETIRACETAM 1000MG PREMIX 100 ML IV SCH (23:00)
[2020-07-29] VITALS (96 sets, daily range): BP systolic 57–208; BP diastolic 37–123
[2020-07-29] MEDS: IPRATROPIUM/ALBUTEROL 0.5-3(2.5)MG/3ML NEB HHN SCH ×6 (00:23→21:13)
[2020-07-29] MEDS: PHENYLEPHRINE 100 MG in DEXT 5% WATER 240 ML IV PRN (02:04)
[2020-07-29] MEDS: BLOOD SUGAR DIAGNOSTIC STRIP TEST SCH ×4 (05:01→23:16)
[2020-07-29 05:24] LABS: BASOPHILS % 0.3 % (0.0-2.0); EOSINOPHILS % 1.2 % (0.0-5.0); HEMATOCRIT. 36.3 % (42.0-52.0); HEMOGLOBIN. 11.7 g/dL (14.0-18.0); LYMPHOCYTES % 8.2 % (20.0-50.0); MEAN CORPUSCULAR HEMOGLOBIN 29.7 pg (28.0-32.0); MEAN CORPUSCULAR VOLUME 91.8 fL (80.0-94.0); MONOCYTES % 4.1 % (2.0-8.0); NEUTROPHILS % 86.2 % (40.0-76.0); PLATELET 228 x1000/uL (130-400); RED BLOOD CELL COUNT 3.95 mill/uL (4.7-6.1)
[2020-07-29] MEDS: ACETAMINOPHEN 325MG TABLET PO PRN (05:33)
[2020-07-29] MEDS: PIPERACILLIN/TAZOBACTAM 3.375 G in DEXT 5% WATER 100 ML IV SCH ×6 (05:33→23:30)
[2020-07-29] MEDS: VANCOMYCIN 750 MG PREMIX 150 ML IV SCH ×2 (05:34→17:26)
[2020-07-29] MEDS: INSULIN LISPRO 100 UNITS/ML SUBCUT SCH ×4 (05:34→23:25)
[2020-07-29] MEDS: FENTANYL CITRATE/PF 2,500 MCG in SODIUM CHLORIDE 0.9% 200 ML IV PRN ×2 (05:53→21:51)
[2020-07-29 06:23] LABS: CHLORIDE 106 mEq/L (98-107)
[2020-07-29] MEDS: DEXAMETHASONE 10 MG/ML VIAL IV SCH (09:04)
[2020-07-29] MEDS: THIAMINE HCL 100MG TABLET PO SCH (09:04)
[2020-07-29] MEDS: ASCORBIC ACID 500 MG TABLET PO SCH ×2 (09:04→21:42)
[2020-07-29] MEDS: MULTIVITAMINS,THER W-MINERALS TABLET PO SCH (09:04)
[2020-07-29] MEDS: FOLIC ACID 1MG TABLET PO SCH (09:04)
[2020-07-29] MEDS: ENOXAPARIN 40MG/0.4ML SYR SUBCUT SCH (09:05)
[2020-07-29] MEDS: SODIUM CHLORIDE 0.45% 1,000 ML IV SCH (09:06)
[2020-07-29] MEDS: MIDODRINE HCL 5MG TABLET PO SCH ×4 (09:07→17:00)
[2020-07-29] MEDS: LEVETIRACETAM 1000MG PREMIX 100 ML IV SCH (09:21)
[2020-07-29 11:01] LABS: BG BASE EXCESS -0.1 mmol/L (-2.0-2.0); BG DEOXYHEMOGLOBIN 3.9 % (0.0-5.0); BG FRACTION INSPIRED OXYGEN 50; BG METHEMOGLOBIN 0.3 % (0.0-1.5); BG OXYGEN SATURATION 96.1 % (92.0-98.5); BG OXYHEMOGLOBIN 95.8 % (94.0-97.0); BG PH 7.462 (7.350-7.450); BG PO2 82.3 mmHg (75.0-100.0); BG SAMPLE SITE RIGHT RADIAL; BG TOTAL HEMOGLOBIN 13.1 g/dL (12.0-18.0); BG VENT MODE PRVC
[2020-07-29] MEDS: ERGOCALCIFEROL 50000UNITS CAPSULE PO SCH (16:14)
[2020-07-29] MEDS: MIDAZOLAM HCL 100 MG in DEXT 5% WATER 80 ML IV PRN (19:52)
[2020-07-29] MEDS: LEVETIRACETAM 1,000 MG in SODIUM CHLORIDE 0.9% 100 ML IV SCH (21:43)
[2020-07-29] MEDS ORDERED: PHENYLEPHRINE 100 MG in SODIUM CHLORIDE 0.9% 240 ML IV PRN (22:54)
[2020-07-29] MEDS: DOPAMINE 400MG/250ML PREMIX 250 ML IV PRN (23:10)
[2020-07-30] VITALS (122 sets, daily range): BP systolic 50–186; BP diastolic 34–108
[2020-07-30] MEDS: IPRATROPIUM/ALBUTEROL 0.5-3(2.5)MG/3ML NEB HHN SCH ×4 (04:06→16:45)
[2020-07-30] MEDS: BLOOD SUGAR DIAGNOSTIC STRIP TEST SCH ×4 (04:20→23:00)
[2020-07-30] MEDS: INSULIN LISPRO 100 UNITS/ML SUBCUT SCH ×4 (04:25→23:48)
[2020-07-30] MEDS: PIPERACILLIN/TAZOBACTAM 3.375 G in DEXT 5% WATER 100 ML IV SCH ×4 (05:05→23:48)
[2020-07-30 05:37] LABS: CHLORIDE 106 mEq/L (98-107); HEMATOCRIT. 40.1 % (42.0-52.0); HEMOGLOBIN. 13.1 g/dL (14.0-18.0); MEAN CORPUSCULAR HEMOGLOBIN 30.2 pg (28.0-32.0); MEAN CORPUSCULAR VOLUME 92.4 fL (80.0-94.0); PLATELET 269 x1000/uL (130-400); RED BLOOD CELL COUNT 4.34 mill/uL (4.7-6.1)
[2020-07-30] MEDS: VANCOMYCIN 750 MG PREMIX 150 ML IV SCH (06:06)
[2020-07-30] MEDS: MULTIVITAMINS,THER W-MINERALS TABLET PO SCH (08:50)
[2020-07-30] MEDS: MIDODRINE HCL 5MG TABLET PO SCH ×3 (08:50→18:08)
[2020-07-30] MEDS: FOLIC ACID 1MG TABLET PO SCH (08:50)
[2020-07-30] MEDS: DEXAMETHASONE 10 MG/ML VIAL IV SCH (08:51)
[2020-07-30] MEDS: THIAMINE HCL 100MG TABLET PO SCH (08:51)
[2020-07-30] MEDS: ENOXAPARIN 40MG/0.4ML SYR SUBCUT SCH (08:51)
[2020-07-30] MEDS: ASCORBIC ACID 500 MG TABLET PO SCH ×2 (08:51→21:37)
[2020-07-30] MEDS: LEVETIRACETAM 1,000 MG in SODIUM CHLORIDE 0.9% 100 ML IV SCH ×2 (08:57→21:37)
[2020-07-30 09:18] LABS: BG BASE EXCESS -1.4 mmol/L (-2.0-2.0); BG CARBOXYHEMOGLOBIN 0.3 % (0.5-1.5); BG DEOXYHEMOGLOBIN 1.5 % (0.0-5.0); BG FRACTION INSPIRED OXYGEN 40; BG HCO3 ACT 21.9 mmol/L (22.0-26.0); BG METHEMOGLOBIN 0.2 % (0.0-1.5); BG OXYGEN SATURATION 98.5 % (92.0-98.5); BG PCO2 32.3 mmHg (35.0-45.0); BG PH 7.449 (7.350-7.450); BG PO2 128.2 mmHg (75.0-100.0); BG SAMPLE SITE RIGHT RADIAL; BG TOTAL HEMOGLOBIN 12.5 g/dL (12.0-18.0); BG TOTAL RESPIRATORY RATE 28 b/min; BG VENT MODE VENT - AC/PRVC
[2020-07-30 12:43] LABS: PLATELET ESTIMATE NORMAL
[2020-07-30] MEDS: FENTANYL CITRATE/PF 2,500 MCG in SODIUM CHLORIDE 0.9% 200 ML IV PRN (14:52)
[2020-07-30] MEDS: MIDAZOLAM HCL 100 MG in DEXT 5% WATER 80 ML IV PRN (17:16)
[2020-07-31] VITALS (103 sets, daily range): BP systolic 57–198; BP diastolic 38–122
[2020-07-31] MEDS: NOREPINEPHRINE 8 MG in SODIUM CHLORIDE 0.9% 242 ML IV PRN (00:45)
[2020-07-31] MEDS: FENTANYL CITRATE/PF 2,500 MCG in SODIUM CHLORIDE 0.9% 200 ML IV PRN ×3 (01:20→22:15)
[2020-07-31] MEDS: IPRATROPIUM/ALBUTEROL 0.5-3(2.5)MG/3ML NEB HHN SCH ×4 (03:04→22:25)
[2020-07-31] MEDS: MIDAZOLAM HCL 100 MG in SODIUM CHLORIDE 0.9% 80 ML IV PRN ×2 (03:53→12:17)
[2020-07-31] MEDS: BLOOD SUGAR DIAGNOSTIC STRIP TEST SCH ×4 (06:00→23:00)
[2020-07-31 06:37] LABS: BASOPHILS % 0.5 % (0.0-2.0); EOSINOPHILS % 0.1 % (0.0-5.0); HEMATOCRIT. 36.3 % (42.0-52.0); HEMOGLOBIN. 11.8 g/dL (14.0-18.0); MEAN CORPUSCULAR HEMOGLOBIN 30.2 pg (28.0-32.0); MEAN CORPUSCULAR VOLUME 92.9 fL (80.0-94.0); MEAN PLATELET VOLUME 9.6 fl (7.4-10.4); MONOCYTES % 6.1 % (2.0-8.0); NEUTROPHILS % 84.3 % (40.0-76.0); PLATELET 299 x1000/uL (130-400)
[2020-07-31 06:50] LABS: CHLORIDE 104 mEq/L (98-107)
[2020-07-31] MEDS: PIPERACILLIN/TAZOBACTAM 3.375 G in DEXT 5% WATER 100 ML IV SCH ×3 (07:06→17:43)
[2020-07-31] MEDS: INSULIN LISPRO 100 UNITS/ML SUBCUT SCH ×4 (07:07→23:00)
[2020-07-31] MEDS: ENOXAPARIN 40MG/0.4ML SYR SUBCUT SCH (09:35)
[2020-07-31] MEDS: DEXAMETHASONE 10 MG/ML VIAL IV SCH (09:36)
[2020-07-31] MEDS: ASCORBIC ACID 500 MG TABLET PO SCH ×2 (09:36→20:44)
[2020-07-31] MEDS: LEVETIRACETAM 1,000 MG in SODIUM CHLORIDE 0.9% 100 ML IV SCH (09:36)
[2020-07-31] MEDS: MIDODRINE HCL 5MG TABLET PO SCH ×3 (09:38→17:06)
[2020-07-31] MEDS: FOLIC ACID 1MG TABLET PO SCH (09:39)
[2020-07-31] MEDS: THIAMINE HCL 100MG TABLET PO SCH (09:39)
[2020-07-31] MEDS: MULTIVITAMINS,THER W-MINERALS TABLET PO SCH (09:39)
[2020-07-31 11:33] LABS: BG BASE EXCESS 0.8 mmol/L (-2.0-2.0); BG CARBOXYHEMOGLOBIN 0.1 % (0.5-1.5); BG DEOXYHEMOGLOBIN 3.9 % (0.0-5.0); BG FRACTION INSPIRED OXYGEN 40; BG HCO3 ACT 23.8 mmol/L (22.0-26.0); BG METHEMOGLOBIN 0.3 % (0.0-1.5); BG OXYGEN SATURATION 96.1 % (92.0-98.5); BG OXYHEMOGLOBIN 95.7 % (94.0-97.0); BG PCO2 32.9 mmHg (35.0-45.0); BG PH 7.477 (7.350-7.450); BG PO2 73.3 mmHg (75.0-100.0); BG SAMPLE SITE LEFT RADIAL; BG TOTAL HEMOGLOBIN 12.8 g/dL (12.0-18.0); BG TOTAL RESPIRATORY RATE 22 b/min; BG VENT MODE VENT- PRVC
[2020-07-31] MEDS: METOCLOPRAMIDE HCL 10MG/2ML VIAL IV SCH (17:43)
[2020-08-01] VITALS (93 sets, daily range): BP systolic 79–164; BP diastolic 40–131
[2020-08-01] MEDS: LEVETIRACETAM 1000MG PREMIX 100 ML IV SCH ×3 (00:07→20:52)
[2020-08-01] MEDS: METOCLOPRAMIDE HCL 10MG/2ML VIAL IV SCH ×5 (01:12→23:37)
[2020-08-01] MEDS: PIPERACILLIN/TAZOBACTAM 3.375 G in DEXT 5% WATER 100 ML IV SCH ×4 (01:13→17:39)
[2020-08-01] MEDS ORDERED: MIDAZOLAM HCL 100 MG in DEXT 5% WATER 80 ML IV PRN (02:00)
[2020-08-01] MEDS: IPRATROPIUM/ALBUTEROL 0.5-3(2.5)MG/3ML NEB HHN SCH ×4 (02:50→21:12)
[2020-08-01] MEDS: INSULIN LISPRO 100 UNITS/ML SUBCUT SCH ×4 (05:00→23:37)
[2020-08-01] MEDS: BLOOD SUGAR DIAGNOSTIC STRIP TEST SCH ×4 (05:39→23:35)
[2020-08-01] MEDS: FENTANYL CITRATE/PF 2,500 MCG in SODIUM CHLORIDE 0.9% 200 ML IV PRN ×2 (07:25→15:38)
[2020-08-01] MEDS: ENOXAPARIN 40MG/0.4ML SYR SUBCUT SCH (09:25)
[2020-08-01] MEDS: ASCORBIC ACID 500 MG TABLET PO SCH ×2 (09:26→20:52)
[2020-08-01] MEDS: MULTIVITAMINS,THER W-MINERALS TABLET PO SCH (09:26)
[2020-08-01] MEDS: FOLIC ACID 1MG TABLET PO SCH (09:26)
[2020-08-01] MEDS: DEXAMETHASONE 10 MG/ML VIAL IV SCH (09:26)
[2020-08-01] MEDS: THIAMINE HCL 100MG TABLET PO SCH (09:26)
[2020-08-01] MEDS: MIDODRINE HCL 5MG TABLET PO SCH ×3 (09:26→17:38)
[2020-08-01] MEDS: NOREPINEPHRINE 8 MG in SODIUM CHLORIDE 0.9% 242 ML IV PRN ×2 (09:28→12:44)
[2020-08-01 12:17] LABS: BG BASE EXCESS 1.1 mmol/L (-2.0-2.0); BG CARBOXYHEMOGLOBIN 0.2 % (0.5-1.5); BG DEOXYHEMOGLOBIN 4.2 % (0.0-5.0); BG HCO3 ACT 23.9 mmol/L (22.0-26.0); BG METHEMOGLOBIN 0.2 % (0.0-1.5); BG OXYGEN SATURATION 95.8 % (92.0-98.5); BG OXYHEMOGLOBIN 95.4 % (94.0-97.0); BG PCO2 32.2 mmHg (35.0-45.0); BG PH 7.488 (7.350-7.450); BG PO2 74.9 mmHg (75.0-100.0); BG SAMPLE SITE LEFT RADIAL; BG TOTAL HEMOGLOBIN 12.8 g/dL (12.0-18.0); BG VENT MODE VENT- PRVC
[2020-08-02] VITALS (61 sets, daily range): BP systolic 62–176; BP diastolic 42–100
[2020-08-02] MEDS: FENTANYL CITRATE/PF 2,500 MCG in SODIUM CHLORIDE 0.9% 200 ML IV PRN ×3 (00:35→20:54)
[2020-08-02] MEDS: IPRATROPIUM/ALBUTEROL 0.5-3(2.5)MG/3ML NEB HHN SCH ×4 (02:54→21:33)
[2020-08-02] MEDS: MIDAZOLAM HCL 100 MG in DEXT 5% WATER 80 ML IV PRN ×2 (04:03→16:27)
[2020-08-02] MEDS: METOCLOPRAMIDE HCL 10MG/2ML VIAL IV SCH ×3 (06:16→17:20)
[2020-08-02 09:14] LABS: BG BASE EXCESS 1.8 mmol/L (-2.0-2.0); BG DEOXYHEMOGLOBIN 5.1 % (0.0-5.0); BG FRACTION INSPIRED OXYGEN 40; BG HCO3 ACT 23.2 mmol/L (22.0-26.0); BG OXYGEN SATURATION 94.9 % (92.0-98.5); BG OXYHEMOGLOBIN 94.9 % (94.0-97.0); BG PH 7.552 (7.350-7.450); BG PO2 69.6 mmHg (75.0-100.0); BG SAMPLE SITE RIGHT RADIAL; BG TOTAL HEMOGLOBIN 11.8 g/dL (12.0-18.0); BG TOTAL RESPIRATORY RATE 23 b/min; BG VENT MODE VENT - AC/PRVC
[2020-08-02] MEDS: MULTIVITAMINS,THER W-MINERALS TABLET PO SCH (10:23)
[2020-08-02] MEDS: THIAMINE HCL 100MG TABLET PO SCH (10:23)
[2020-08-02] MEDS: ENOXAPARIN 40MG/0.4ML SYR SUBCUT SCH (10:23)
[2020-08-02] MEDS: DEXAMETHASONE 10 MG/ML VIAL IV SCH (10:24)
[2020-08-02] MEDS: LEVETIRACETAM 1000MG PREMIX 100 ML IV SCH ×2 (10:24→21:00)
[2020-08-02] MEDS: ASCORBIC ACID 500 MG TABLET PO SCH ×2 (10:24→21:17)
[2020-08-02] MEDS: FOLIC ACID 1MG TABLET PO SCH (10:24)
[2020-08-02] MEDS: MIDODRINE HCL 5MG TABLET PO SCH ×3 (10:26→17:19)
[2020-08-02] MEDS: BLOOD SUGAR DIAGNOSTIC STRIP TEST SCH ×3 (11:55→23:00)
[2020-08-02] MEDS: INSULIN LISPRO 100 UNITS/ML SUBCUT SCH ×3 (11:59→23:42)
[2020-08-03] VITALS (71 sets, daily range): BP systolic 75–186; BP diastolic 50–112
[2020-08-03] MEDS: METOCLOPRAMIDE HCL 10MG/2ML VIAL IV SCH ×5 (00:07→23:45)
[2020-08-03] MEDS: IPRATROPIUM/ALBUTEROL 0.5-3(2.5)MG/3ML NEB HHN SCH ×5 (03:06→20:04)
[2020-08-03] MEDS: INSULIN LISPRO 100 UNITS/ML SUBCUT SCH ×4 (05:00→23:00)
[2020-08-03] MEDS: BLOOD SUGAR DIAGNOSTIC STRIP TEST SCH ×4 (05:53→23:44)
[2020-08-03 05:59] LABS: CHLORIDE 104 mEq/L (98-107)
[2020-08-03 06:03] LABS: BASOPHILS % 0.2 % (0.0-2.0); EOSINOPHILS % 0.7 % (0.0-5.0); HEMATOCRIT. 35.1 % (42.0-52.0); HEMOGLOBIN. 11.9 g/dL (14.0-18.0); LYMPHOCYTES % 17.4 % (20.0-50.0); MEAN CORPUSCULAR HEMOGLOBIN 30.9 pg (28.0-32.0); MEAN CORPUSCULAR VOLUME 91.3 fL (80.0-94.0); MEAN PLATELET VOLUME 8.5 fl (7.4-10.4); MONOCYTES % 5.5 % (2.0-8.0); NEUTROPHILS % 76.2 % (40.0-76.0); PLATELET 309 x1000/uL (130-400); RED BLOOD CELL COUNT 3.84 mill/uL (4.7-6.1); RED CELL DISTRIBUTION WIDTH 15.1 % (11.6-14.6)
[2020-08-03] MEDS: FENTANYL CITRATE/PF 2,500 MCG in SODIUM CHLORIDE 0.9% 200 ML IV PRN ×2 (07:23→19:42)
[2020-08-03] MEDS: MIDODRINE HCL 5MG TABLET PO SCH ×3 (08:57→17:17)
[2020-08-03] MEDS: THIAMINE HCL 100MG TABLET PO SCH (08:57)
[2020-08-03] MEDS: DEXAMETHASONE 10 MG/ML VIAL IV SCH (08:58)
[2020-08-03] MEDS: FOLIC ACID 1MG TABLET PO SCH (08:58)
[2020-08-03] MEDS: ASCORBIC ACID 500 MG TABLET PO SCH ×2 (08:58→20:44)
[2020-08-03] MEDS: MULTIVITAMINS,THER W-MINERALS TABLET PO SCH (08:58)
[2020-08-03] MEDS: ENOXAPARIN 40MG/0.4ML SYR SUBCUT SCH (08:58)
[2020-08-03] MEDS: LEVETIRACETAM 1000MG PREMIX 100 ML IV SCH ×2 (08:59→20:44)
[2020-08-03] MEDS: MIDAZOLAM HCL 100 MG in DEXT 5% WATER 80 ML IV PRN (13:16)
[2020-08-03 15:14] LABS: BG BASE EXCESS 0.9 mmol/L (-2.0-2.0); BG CARBOXYHEMOGLOBIN 0.3 % (0.5-1.5); BG DEOXYHEMOGLOBIN 0.9 % (0.0-5.0); BG FRACTION INSPIRED OXYGEN 50; BG HCO3 ACT 24.2 mmol/L (22.0-26.0); BG METHEMOGLOBIN 0.2 % (0.0-1.5); BG OXYGEN SATURATION 99.1 % (92.0-98.5); BG OXYHEMOGLOBIN 98.6 % (94.0-97.0); BG PO2 187.3 mmHg (75.0-100.0); BG SAMPLE SITE RIGHT RADIAL; BG VENT MODE PRVC
[2020-08-04] VITALS (99 sets, daily range): BP systolic 66–183; BP diastolic 41–110
[2020-08-04] MEDS: IPRATROPIUM/ALBUTEROL 0.5-3(2.5)MG/3ML NEB HHN SCH ×5 (00:07→20:29)
[2020-08-04] MEDS: MIDAZOLAM HCL 100 MG in SODIUM CHLORIDE 0.9% 80 ML IV PRN ×2 (04:10→17:05)
[2020-08-04] MEDS: INSULIN LISPRO 100 UNITS/ML SUBCUT SCH ×4 (05:00→23:00)
[2020-08-04] MEDS: BLOOD SUGAR DIAGNOSTIC STRIP TEST SCH ×4 (05:58→23:00)
[2020-08-04] MEDS: METOCLOPRAMIDE HCL 10MG/2ML VIAL IV SCH ×3 (05:59→17:04)
[2020-08-04] MEDS: FENTANYL CITRATE/PF 2,500 MCG in SODIUM CHLORIDE 0.9% 200 ML IV PRN ×2 (07:15→18:15)
[2020-08-04] MEDS ORDERED: DEXAMETHASONE 4MG/ML 1ML VIAL IV SCH (08:01)
[2020-08-04] MEDS: ENOXAPARIN 40MG/0.4ML SYR SUBCUT SCH (09:15)
[2020-08-04] MEDS: DEXAMETHASONE 4MG/ML 1ML VIAL IV SCH (09:16)
[2020-08-04] MEDS: LEVETIRACETAM 1000MG PREMIX 100 ML IV SCH ×2 (09:17→21:07)
[2020-08-04] MEDS: ASCORBIC ACID 500 MG TABLET PO SCH ×2 (09:19→21:07)
[2020-08-04] MEDS: THIAMINE HCL 100MG TABLET PO SCH (09:19)
[2020-08-04] MEDS: MIDODRINE HCL 5MG TABLET PO SCH ×3 (09:19→17:03)
[2020-08-04] MEDS: MULTIVITAMINS,THER W-MINERALS TABLET PO SCH (09:19)
[2020-08-04] MEDS: FOLIC ACID 1MG TABLET PO SCH (09:19)
[2020-08-04 09:50] LABS: BG BASE EXCESS -4.4 mmol/L (-2.0-2.0); BG CARBOXYHEMOGLOBIN 0.3 % (0.5-1.5); BG DEOXYHEMOGLOBIN 3.2 % (0.0-5.0); BG FRACTION INSPIRED OXYGEN 50; BG HCO3 ACT 19.5 mmol/L (22.0-26.0); BG OXYGEN SATURATION 96.8 % (92.0-98.5); BG OXYHEMOGLOBIN 96.5 % (94.0-97.0); BG PCO2 32.3 mmHg (35.0-45.0); BG PH 7.398 (7.350-7.450); BG PO2 91.2 mmHg (75.0-100.0); BG SAMPLE SITE RIGHT RADIAL; BG TOTAL HEMOGLOBIN 12.7 g/dL (12.0-18.0); BG TOTAL RESPIRATORY RATE 22 b/min; BG VENT MODE VENT - AC/PRVC
[2020-08-05] VITALS (97 sets, daily range): BP systolic 73–191; BP diastolic 41–108
[2020-08-05] MEDS: METOCLOPRAMIDE HCL 10MG/2ML VIAL IV SCH ×5 (00:25→23:29)
[2020-08-05] MEDS: IPRATROPIUM/ALBUTEROL 0.5-3(2.5)MG/3ML NEB HHN SCH ×5 (00:46→21:09)
[2020-08-05] MEDS: NOREPINEPHRINE 8 MG in SODIUM CHLORIDE 0.9% 242 ML IV PRN (04:18)
[2020-08-05] MEDS: BLOOD SUGAR DIAGNOSTIC STRIP TEST SCH ×4 (05:22→23:28)
[2020-08-05] MEDS: INSULIN LISPRO 100 UNITS/ML SUBCUT SCH ×4 (05:25→23:25)
[2020-08-05] MEDS: MIDAZOLAM HCL 100 MG in SODIUM CHLORIDE 0.9% 80 ML IV PRN ×2 (09:06→18:26)
[2020-08-05] MEDS: FENTANYL CITRATE/PF 2,500 MCG in SODIUM CHLORIDE 0.9% 200 ML IV PRN ×2 (09:08→21:08)
[2020-08-05] MEDS: LEVETIRACETAM 1000MG PREMIX 100 ML IV SCH ×2 (09:49→20:58)
[2020-08-05] MEDS: ASCORBIC ACID 500 MG TABLET PO SCH ×2 (09:50→20:57)
[2020-08-05] MEDS: THIAMINE HCL 100MG TABLET PO SCH (09:51)
[2020-08-05] MEDS: MULTIVITAMINS,THER W-MINERALS TABLET PO SCH (09:51)
[2020-08-05] MEDS: FOLIC ACID 1MG TABLET PO SCH (09:51)
[2020-08-05] MEDS: MIDODRINE HCL 5MG TABLET PO SCH ×3 (09:51→17:00)
[2020-08-05] MEDS: DEXAMETHASONE 4MG/ML 1ML VIAL IV SCH (09:51)
[2020-08-05] MEDS: ENOXAPARIN 40MG/0.4ML SYR SUBCUT SCH (09:51)
[2020-08-05] MEDS: ERGOCALCIFEROL 50000UNITS CAPSULE PO SCH (15:48)
[2020-08-05 20:56] LABS: HEMATOCRIT. 31.9 % (42.0-52.0); HEMOGLOBIN. 10.4 g/dL (14.0-18.0); MEAN CORPUSCULAR HEMOGLOBIN 30.2 pg (28.0-32.0); MEAN CORPUSCULAR VOLUME 92.9 fL (80.0-94.0); MEAN PLATELET VOLUME 7.8 fl (7.4-10.4); PLATELET 307 x1000/uL (130-400); RED BLOOD CELL COUNT 3.44 mill/uL (4.7-6.1); RED CELL DISTRIBUTION WIDTH 14.9 % (11.6-14.6)
[2020-08-05 21:03] LABS: CHLORIDE 100 mEq/L (98-107)
[2020-08-05 21:17] LABS: PLATELET ESTIMATE NORMAL
[2020-08-06] VITALS (105 sets, daily range): BP systolic 73–179; BP diastolic 44–119
[2020-08-06] MEDS: IPRATROPIUM/ALBUTEROL 0.5-3(2.5)MG/3ML NEB HHN SCH ×4 (02:51→21:13)
[2020-08-06] MEDS: INSULIN LISPRO 100 UNITS/ML SUBCUT SCH ×5 (05:00→23:22)
[2020-08-06] MEDS: BLOOD SUGAR DIAGNOSTIC STRIP TEST SCH ×5 (05:44→23:22)
[2020-08-06] MEDS: METOCLOPRAMIDE HCL 10MG/2ML VIAL IV SCH ×4 (05:49→23:24)
[2020-08-06 05:59] LABS: BASOPHILS % 0.3 % (0.0-2.0); EOSINOPHILS % 0.1 % (0.0-5.0); HEMATOCRIT. 31.9 % (42.0-52.0); HEMOGLOBIN. 10.8 g/dL (14.0-18.0); LYMPHOCYTES % 8.7 % (20.0-50.0); MEAN CORPUSCULAR HEMOGLOBIN 30.7 pg (28.0-32.0); MEAN CORPUSCULAR VOLUME 91.1 fL (80.0-94.0); MEAN PLATELET VOLUME 7.8 fl (7.4-10.4); NEUTROPHILS % 85.9 % (40.0-76.0); PLATELET 322 x1000/uL (130-400); RED BLOOD CELL COUNT 3.51 mill/uL (4.7-6.1); RED CELL DISTRIBUTION WIDTH 15.1 % (11.6-14.6)
[2020-08-06 06:32] LABS: CHLORIDE 97 mEq/L (98-107)
[2020-08-06] MEDS: FENTANYL CITRATE/PF 2,500 MCG in SODIUM CHLORIDE 0.9% 200 ML IV PRN ×2 (07:51→20:26)
[2020-08-06] MEDS: ASCORBIC ACID 500 MG TABLET PO SCH ×2 (08:34→20:35)
[2020-08-06] MEDS: FOLIC ACID 1MG TABLET PO SCH (08:34)
[2020-08-06] MEDS: MULTIVITAMINS,THER W-MINERALS TABLET PO SCH (08:34)
[2020-08-06] MEDS: THIAMINE HCL 100MG TABLET PO SCH (08:34)
[2020-08-06] MEDS: MIDODRINE HCL 5MG TABLET PO SCH ×3 (08:35→17:51)
[2020-08-06] MEDS: DEXAMETHASONE 4MG/ML 1ML VIAL IV SCH (08:35)
[2020-08-06] MEDS: ENOXAPARIN 40MG/0.4ML SYR SUBCUT SCH (08:36)
[2020-08-06] MEDS: LEVETIRACETAM 1000MG PREMIX 100 ML IV SCH (08:37)
[2020-08-06] MEDS: MIDAZOLAM HCL 100 MG in SODIUM CHLORIDE 0.9% 80 ML IV PRN ×2 (10:43→20:07)
[2020-08-06 12:13] LABS: BG BASE EXCESS 6.9 mmol/L (-2.0-2.0); BG CARBOXYHEMOGLOBIN 0.5 % (0.5-1.5); BG DEOXYHEMOGLOBIN 1.1 % (0.0-5.0); BG HCO3 ACT 32.2 mmol/L (22.0-26.0); BG METHEMOGLOBIN 0.3 % (0.0-1.5); BG OXYGEN SATURATION 98.9 % (92.0-98.5); BG OXYHEMOGLOBIN 98.1 % (94.0-97.0); BG PCO2 49.1 mmHg (35.0-45.0); BG PH 7.435 (7.350-7.450); BG PO2 139.5 mmHg (75.0-100.0); BG SAMPLE SITE LEFT RADIAL; BG TOTAL HEMOGLOBIN 12.3 g/dL (12.0-18.0); BG VENT MODE VENT- PRVC
[2020-08-06] MEDS: LEVETIRACETAM 1,000 MG in SODIUM CHLORIDE 0.9% 100 ML IV SCH (23:22)
[2020-08-07] VITALS (97 sets, daily range): BP systolic 67–186; BP diastolic 39–95
[2020-08-07] MEDS: IPRATROPIUM/ALBUTEROL 0.5-3(2.5)MG/3ML NEB HHN SCH ×5 (00:35→22:43)
[2020-08-07 05:23] LABS: BASOPHILS % 0.3 % (0.0-2.0); EOSINOPHILS % 0.2 % (0.0-5.0); HEMATOCRIT. 30.8 % (42.0-52.0); HEMOGLOBIN. 10.3 g/dL (14.0-18.0); LYMPHOCYTES % 11.4 % (20.0-50.0); MEAN CORPUSCULAR HEMOGLOBIN 30.8 pg (28.0-32.0); MEAN CORPUSCULAR VOLUME 92.2 fL (80.0-94.0); MEAN PLATELET VOLUME 7.5 fl (7.4-10.4); MONOCYTES % 6.7 % (2.0-8.0); NEUTROPHILS % 81.4 % (40.0-76.0); PLATELET 291 x1000/uL (130-400); RED BLOOD CELL COUNT 3.34 mill/uL (4.7-6.1); RED CELL DISTRIBUTION WIDTH 15.2 % (11.6-14.6)
[2020-08-07 05:45] LABS: CHLORIDE 99 mEq/L (98-107)
[2020-08-07] MEDS: INSULIN LISPRO 100 UNITS/ML SUBCUT SCH ×3 (06:02→17:45)
[2020-08-07] MEDS: BLOOD SUGAR DIAGNOSTIC STRIP TEST SCH ×3 (06:02→16:42)
[2020-08-07] MEDS: METOCLOPRAMIDE HCL 10MG/2ML VIAL IV SCH ×3 (06:02→17:44)
[2020-08-07] MEDS: MIDAZOLAM HCL 100 MG in SODIUM CHLORIDE 0.9% 80 ML IV PRN ×2 (08:08→19:22)
[2020-08-07] MEDS: FENTANYL CITRATE/PF 2,500 MCG in SODIUM CHLORIDE 0.9% 200 ML IV PRN ×2 (08:09→21:07)
[2020-08-07] MEDS: ASCORBIC ACID 500 MG TABLET PO SCH ×2 (09:34→21:01)
[2020-08-07] MEDS: FOLIC ACID 1MG TABLET PO SCH (09:34)
[2020-08-07] MEDS: THIAMINE HCL 100MG TABLET PO SCH (09:34)
[2020-08-07] MEDS: MIDODRINE HCL 5MG TABLET PO SCH ×3 (09:34→17:44)
[2020-08-07] MEDS: DEXAMETHASONE 4MG/ML 1ML VIAL IV SCH (09:35)
[2020-08-07] MEDS: MULTIVITAMINS,THER W-MINERALS TABLET PO SCH (09:35)
[2020-08-07] MEDS: LEVETIRACETAM 1,000 MG in SODIUM CHLORIDE 0.9% 100 ML IV SCH ×2 (09:36→21:01)
[2020-08-07] MEDS: ENOXAPARIN 40MG/0.4ML SYR SUBCUT SCH (09:39)
[2020-08-07 10:23] LABS: BG BASE EXCESS 4.4 mmol/L (-2.0-2.0); BG CARBOXYHEMOGLOBIN 0.3 % (0.5-1.5); BG DEOXYHEMOGLOBIN 0.7 % (0.0-5.0); BG FRACTION INSPIRED OXYGEN 70; BG HCO3 ACT 26.9 mmol/L (22.0-26.0); BG METHEMOGLOBIN 0.2 % (0.0-1.5); BG OXYGEN SATURATION 99.3 % (92.0-98.5); BG OXYHEMOGLOBIN 98.8 % (94.0-97.0); BG PCO2 32.5 mmHg (35.0-45.0); BG PH 7.536 (7.350-7.450); BG PO2 214.1 mmHg (75.0-100.0); BG SAMPLE SITE RIGHT RADIAL; BG TOTAL HEMOGLOBIN 10.6 g/dL (12.0-18.0); BG TOTAL RESPIRATORY RATE 24 b/min; BG VENT MODE VENT - AC/PRVC
[2020-08-08] VITALS (107 sets, daily range): BP systolic 52–188; BP diastolic 36–120
[2020-08-08] MEDS: METOCLOPRAMIDE HCL 10MG/2ML VIAL IV SCH ×5 (00:20→23:43)
[2020-08-08] MEDS: IPRATROPIUM/ALBUTEROL 0.5-3(2.5)MG/3ML NEB HHN SCH ×4 (03:40→20:50)
[2020-08-08] MEDS: BLOOD SUGAR DIAGNOSTIC STRIP TEST SCH ×4 (05:00→23:00)
[2020-08-08] MEDS: INSULIN LISPRO 100 UNITS/ML SUBCUT SCH ×4 (05:00→23:00)
[2020-08-08] MEDS: MIDAZOLAM HCL 100 MG in SODIUM CHLORIDE 0.9% 80 ML IV PRN ×2 (06:11→23:43)
[2020-08-08] MEDS: MIDODRINE HCL 5MG TABLET PO SCH ×3 (09:00→17:00)
[2020-08-08 09:43] LABS: BG BASE EXCESS 3.7 mmol/L (-2.0-2.0); BG CARBOXYHEMOGLOBIN 0.2 % (0.5-1.5); BG DEOXYHEMOGLOBIN 2.7 % (0.0-5.0); BG FRACTION INSPIRED OXYGEN 50; BG HCO3 ACT 27.1 mmol/L (22.0-26.0); BG METHEMOGLOBIN 0.3 % (0.0-1.5); BG OXYGEN SATURATION 97.3 % (92.0-98.5); BG OXYHEMOGLOBIN 96.8 % (94.0-97.0); BG PCO2 36.5 mmHg (35.0-45.0); BG PH 7.488 (7.350-7.450); BG PO2 93.8 mmHg (75.0-100.0); BG SAMPLE SITE RIGHT RADIAL; BG TOTAL HEMOGLOBIN 11.2 g/dL (12.0-18.0); BG TOTAL RESPIRATORY RATE 28 b/min; BG VENT MODE VENT - AC/PRVC
[2020-08-08] MEDS: LEVETIRACETAM 1,000 MG in SODIUM CHLORIDE 0.9% 100 ML IV SCH ×2 (10:12→21:34)
[2020-08-08] MEDS: ENOXAPARIN 40MG/0.4ML SYR SUBCUT SCH (10:12)
[2020-08-08] MEDS: THIAMINE HCL 100MG TABLET PO SCH (10:12)
[2020-08-08] MEDS: MULTIVITAMINS,THER W-MINERALS TABLET PO SCH (10:12)
[2020-08-08] MEDS: FOLIC ACID 1MG TABLET PO SCH (10:12)
[2020-08-08] MEDS: DEXAMETHASONE 4MG/ML 1ML VIAL IV SCH (10:12)
[2020-08-08] MEDS: ASCORBIC ACID 500 MG TABLET PO SCH ×2 (10:14→21:35)
[2020-08-08] MEDS ORDERED: DILTIAZEM HCL 5MG/ML 5ML VIAL IV NR (12:15)
[2020-08-08] MEDS: FENTANYL CITRATE/PF 2,500 MCG in SODIUM CHLORIDE 0.9% 200 ML IV PRN (12:30)
[2020-08-08] MEDS: HYDRALAZINE HCL 50MG TABLET PO SCH (21:34)
[2020-08-08] MEDS: DILTIAZEM HCL 30MG TABLET PO SCH (21:35)
[2020-08-09] VITALS (100 sets, daily range): BP systolic 63–183; BP diastolic 38–119
[2020-08-09] MEDS: IPRATROPIUM/ALBUTEROL 0.5-3(2.5)MG/3ML NEB HHN SCH ×5 (00:40→21:12)
[2020-08-09] MEDS: FENTANYL CITRATE/PF 2,500 MCG in SODIUM CHLORIDE 0.9% 200 ML IV PRN ×2 (04:52→21:35)
[2020-08-09] MEDS: BLOOD SUGAR DIAGNOSTIC STRIP TEST SCH ×4 (05:00→23:30)
[2020-08-09] MEDS: INSULIN LISPRO 100 UNITS/ML SUBCUT SCH ×4 (05:00→23:00)
[2020-08-09] MEDS: METOCLOPRAMIDE HCL 10MG/2ML VIAL IV SCH ×4 (05:57→23:37)
[2020-08-09] MEDS: HYDRALAZINE HCL 50MG TABLET PO SCH ×3 (05:58→21:37)
[2020-08-09] MEDS: DILTIAZEM HCL 30MG TABLET PO SCH ×3 (05:59→21:37)
[2020-08-09 06:10] LABS: HEMATOCRIT 32.7 % (42.0-52.0); MEAN CORPUSCULAR HEMOGLOBIN 30.8 pg (28.0-32.0); MEAN CORPUSCULAR VOLUME 92.1 fL (80.0-94.0); PLATELET 304 x1000/uL (130-400); RED BLOOD CELL COUNT 3.55 mill/uL (4.7-6.1); RED CELL DISTRIBUTION WIDTH 15.5 % (11.6-14.6)
[2020-08-09 06:14] LABS: CHLORIDE 101 mEq/L (98-107)
[2020-08-09] MEDS: FOLIC ACID 1MG TABLET PO SCH (08:40)
[2020-08-09] MEDS: THIAMINE HCL 100MG TABLET PO SCH (08:40)
[2020-08-09] MEDS: MULTIVITAMINS,THER W-MINERALS TABLET PO SCH (08:40)
[2020-08-09] MEDS: ASCORBIC ACID 500 MG TABLET PO SCH ×2 (08:40→21:37)
[2020-08-09] MEDS: DEXAMETHASONE 4MG/ML 1ML VIAL IV SCH (08:40)
[2020-08-09] MEDS: ENOXAPARIN 40MG/0.4ML SYR SUBCUT SCH (08:40)
[2020-08-09] MEDS: LEVETIRACETAM 1,000 MG in SODIUM CHLORIDE 0.9% 100 ML IV SCH ×2 (08:41→21:46)
[2020-08-09] MEDS ORDERED: MIDAZOLAM HCL 100 MG in DEXT 5% WATER 80 ML IV PRN (17:00)
[2020-08-09] MEDS ORDERED: MIDAZOLAM HCL 100 MG in SODIUM CHLORIDE 0.9% 80 ML IV PRN (17:15)
[2020-08-10] VITALS (97 sets, daily range): BP systolic 62–181; BP diastolic 41–98
[2020-08-10] MEDS ORDERED: MIDAZOLAM HCL 100 MG in DEXT 5% WATER 80 ML IV PRN (01:00)
[2020-08-10] MEDS: IPRATROPIUM/ALBUTEROL 0.5-3(2.5)MG/3ML NEB HHN SCH ×4 (02:23→21:33)
[2020-08-10] MEDS: INSULIN LISPRO 100 UNITS/ML SUBCUT SCH ×4 (05:00→23:12)
[2020-08-10] MEDS: BLOOD SUGAR DIAGNOSTIC STRIP TEST SCH ×4 (05:38→23:12)
[2020-08-10] MEDS: DILTIAZEM HCL 30MG TABLET PO SCH ×3 (06:04→21:39)
[2020-08-10] MEDS: METOCLOPRAMIDE HCL 10MG/2ML VIAL IV SCH ×3 (06:04→18:33)
[2020-08-10] MEDS: HYDRALAZINE HCL 50MG TABLET PO SCH ×3 (06:06→21:39)
[2020-08-10] MEDS ORDERED: DEXAMETHASONE 4MG/ML 1ML VIAL IV SCH (09:00)
[2020-08-10] MEDS: LEVETIRACETAM 1,000 MG in SODIUM CHLORIDE 0.9% 100 ML IV SCH ×2 (09:10→22:18)
[2020-08-10] MEDS: ENOXAPARIN 40MG/0.4ML SYR SUBCUT SCH (09:10)
[2020-08-10] MEDS: MULTIVITAMINS,THER W-MINERALS TABLET PO SCH (09:11)
[2020-08-10] MEDS: THIAMINE HCL 100MG TABLET PO SCH (09:11)
[2020-08-10] MEDS: ASCORBIC ACID 500 MG TABLET PO SCH ×2 (09:11→20:05)
[2020-08-10] MEDS: FOLIC ACID 1MG TABLET PO SCH (09:11)
[2020-08-10 10:06] LABS: HEMATOCRIT 36.7 % (42.0-52.0); HEMOGLOBIN 12.2 g/dL (14.0-18.0); MEAN CORPUSCULAR HEMOGLOBIN 30.7 pg (28.0-32.0); MEAN CORPUSCULAR VOLUME 92.3 fL (80.0-94.0); PLATELET 366 x1000/uL (130-400); RED BLOOD CELL COUNT 3.97 mill/uL (4.7-6.1); RED CELL DISTRIBUTION WIDTH 16.4 % (11.6-14.6)
[2020-08-10 10:22] LABS: CHLORIDE 99 mEq/L (98-107)
[2020-08-10 10:37] LABS: BG BASE EXCESS -0.5 mmol/L (-2.0-2.0); BG CARBOXYHEMOGLOBIN 0.3 % (0.5-1.5); BG FRACTION INSPIRED OXYGEN 40; BG HCO3 ACT 21.8 mmol/L (22.0-26.0); BG METHEMOGLOBIN 0.3 % (0.0-1.5); BG OXYHEMOGLOBIN 95.4 % (94.0-97.0); BG PH 7.494 (7.350-7.450); BG PO2 74.5 mmHg (75.0-100.0); BG SAMPLE SITE RIGHT RADIAL; BG TOTAL HEMOGLOBIN 12.6 g/dL (12.0-18.0); BG VENT MODE VENT - AC/PRVC
[2020-08-10 13:13] LABS: BG CARBOXYHEMOGLOBIN 0.4 % (0.5-1.5); BG DEOXYHEMOGLOBIN 2.4 % (0.0-5.0); BG FRACTION INSPIRED OXYGEN 40; BG HCO3 ACT 23.5 mmol/L (22.0-26.0); BG METHEMOGLOBIN 0.1 % (0.0-1.5); BG OXYGEN SATURATION 97.6 % (92.0-98.5); BG OXYHEMOGLOBIN 97.1 % (94.0-97.0); BG PCO2 30.9 mmHg (35.0-45.0); BG PH 7.499 (7.350-7.450); BG PO2 94.9 mmHg (75.0-100.0); BG SAMPLE SITE RIGHT RADIAL; BG TOTAL HEMOGLOBIN 12.8 g/dL (12.0-18.0); BG TOTAL RESPIRATORY RATE 20 b/min; BG VENT MODE VENT-PRVC
[2020-08-10] MEDS: FENTANYL CITRATE/PF 2,500 MCG in SODIUM CHLORIDE 0.9% 200 ML IV PRN (23:14)
== END 2020-08-10 23:30 | DRG 870 ==
LOC: ER 20:35 → MICUSO 07-17 01:09 → 7EST 07-18 21:49 → MICUNO 07-22 09:25
PROVIDERS: ADMIT Internal Medicine; ATTEND Internal Medicine
PROC: 5A09557 Assistance with Respiratory Ventilation, Greater than 96 Consecutive Hours, Continuous Positive Airway Pressure (ICD-10-PCS; 2020-07-16)
PROC: 5A1955Z Respiratory Ventilation, Greater than 96 Consecutive Hours (ICD-10-PCS; principal; 2020-07-17)
PROC: 0BH18EZ Insertion of Endotracheal Airway into Trachea, Via Natural or Artificial Opening Endoscopic (ICD-10-PCS; 2020-07-17)
PROC: 02H633Z Insertion of Infusion Device into Right Atrium, Percutaneous Approach (ICD-10-PCS; 2020-07-22)
PROC: B548ZZA Ultrasonography of Superior Vena Cava, Guidance (ICD-10-PCS; 2020-07-22)
DX: A41.89 Other specified sepsis (principal); U07.1 COVID-19; J96.01 Acute respiratory failure with hypoxia; E43 Unspecified severe protein-calorie malnutrition; J12.82 Pneumonia due to coronavirus disease 2019; R65.21 Severe sepsis with septic shock; G92 Toxic encephalopathy; J15.9 Unspecified bacterial pneumonia; Z68.1 Body mass index [BMI] 19.9 or less, adult; D68.69 Other thrombophilia; E87.2 Acidosis; Z99.11 Dependence on respirator [ventilator] status; B97.89 Other viral agents as the cause of diseases classified elsewhere; G40.909 Epilepsy, unspecified, not intractable, without status epilepticus; I10 Essential (primary) hypertension; D64.9 Anemia, unspecified; D72.810 Lymphocytopenia; E11.9 Type 2 diabetes mellitus without complications; F41.9 Anxiety disorder, unspecified; R74.01 Elevation of levels of liver transaminase levels; F19.11 Other psychoactive substance abuse, in remission; M19.09 Primary osteoarthritis, other specified site; R00.1 Bradycardia, unspecified; Z79.01 Long term (current) use of anticoagulants; Z85.819 Personal history of malignant neoplasm of unspecified site of lip, oral cavity, and pharynx; Z86.73 Personal history of transient ischemic attack (TIA), and cerebral infarction without residual deficits; Z93.0 Tracheostomy status; Z79.82 Long term (current) use of aspirin; Z79.899 Other long term (current) drug therapy
CPT/HCPCS: 31500; 36415; 36600; 71045; 74018; 76937; 80048; 80053; 80202; 80305; 80320; 81003; 82140; 82375; 82533; 82607; 82728; 82746; 82805; 82962; 83036; 83605; 83615; 83880; 84145; 84439; 84443; 84481; 84484; 85025; 85027; 85379; 86140; 87070; 87426; 87804; 93005; 94002; 94003; 94640; 94660; 96365; 96372; 96375; 96376; 99285; A6261; C1725; J0360; J0456; J0696; J1100; J1265; J1650; J1815; J1953; J2250; J2370; J2543; J2765; J3010; J3370; J3490; J7040; J7050; J7060; U0003; A4315; G0480